=== PATIENT | male | born 1950 | race Caucasian/White ===

== ENCOUNTER 2016-10-11 07:32 | Day surgery (SDC) | payer OTHER ==
[2016-10-04 16:08] VITALS: BMI 27.2
[2016-10-11] MEDS ORDERED: PROPOFOL 20 ML ONE ×2 (07:36)
[2016-10-11 15:28] VITALS: BP 138/76; PULSE 59; TEMP 97.6
== END 2016-10-11 10:10 | disposition home or self-care (01) ==
LOC: FASU-ENDO 07:32
PROVIDERS: ATTEND Internal Medicine Gastroenterology
PROC: 0DJD8ZZ Inspection of Lower Intestinal Tract, Via Natural or Artificial Opening Endoscopic (ICD-10-PCS; principal; 2016-10-11 08:56)
DX: Z86.010 Personal history of colon polyps (principal)

== ENCOUNTER 2018-04-19 23:49 | Emergency (ER) | payer OTHER ==
[2018-04-20] MEDS ORDERED: DIPHTH,PERTUSS(ACELL),TET VAC 0.5 ML VIAL IM ONE (01:19)
--- NOTE | 2018-04-20 01:20 | PDOC ---
History of Present Illness - History of Present Illness Initial Comments: The patient is a 67 year old male, with a significant PMH of HLD and hypercholesterolemia, who presents to the emergency department today s/p unwitnessed fall prior to arrival. Patient notes he had 2 glasses of strong liquor and 2 glasses of wine earlier this evening. He does also admit to marijuana use today. He recalls relaxing and watching TV, but not the incident. As per patients , she heard a loud bang and came down to find that her had fell onto the floor. Patient does not recall the how the incident took place or anything during the fall, but he does confirm LOC and head contusion. Patients notes that he has been slightly out of sorts since the incident. Patient had one episode of NBNB vomit while in the ED. He denies any neck pain, back pain, or other injuries at this time. The patient denies chest pain and shortness of breath. Denies fever, chills, diarrhea and constipation. Denies dysuria, frequency, urgency and hematuria. Allergies: NKA Past surgical history: Left toe fracture repair Social history: Daily EtOh use, marijuana use PCP: Dr. Ancelmo Barajas 04/20/18 02:26 <Pily Gilbert - Last Filed: 04/20/18 02:37> <Magy Noel - Last Filed: 04/21/18 02:01> - General Chief Complaint: Injury Stated Complaint: FALL,HEAD INJURY Time Seen by Provider: 04/20/18 01:19 Past History <Pily Gilbert - Last Filed: 04/20/18 02:37> - Past Medical History Anemia: No Asthma: No Cancer: No Cardiac Disorders: No CVA: No COPD: No CHF: No Dementia: No Diabetes: No GI Disorders: No Disorders: No HTN: No Hypercholesterolemia: Yes Liver Disease: No Seizures: No Thyroid Disease: No - Surgical History Abdominal Surgery: No Appendectomy: No Cardiac Surgery: No Cholecystectomy: No Lung Surgery: No Neurologic Surgery: No Orthopedic Surgery: No (lt 2nd toe fx repair 25 yrs ago) - Suicide/Smoking/Psychosocial Hx Smoking History: Never smoked Have you smoked in the past 12 months: No Hx Alcohol Use: Yes (daily) Drug/Substance Use Hx: No Substance Use Type: Alcohol Hx Substance Use Treatment: No <Magy Noel - Last Filed: 04/21/18 02:01> - Past Medical History Allergies/Adverse Reactions: Allergies Allergy/AdvReac Type Severity Reaction Status Date / Time No Known Allergies Allergy Verified 10/11/16 07:50 Home Medications: Ambulatory Orders Cholecalciferol (Vitamin D3) [Vitamin D3] 2,000 unit PO DAILY capsule 11/16/14 Review of Systems - Review of Systems Comments:: GENERAL/CONSTITUTIONAL: No fever or chills. No weakness. HEAD, EYES, EARS, NOSE AND THROAT: +Head contusion. +Right occipital laceration. No change in vision. No ear pain or discharge. No sore throat. CARDIOVASCULAR: No chest pain or shortness of breath. RESPIRATORY: No cough, wheezing, or hemoptysis. GASTROINTESTINAL: +1 episode NBNB vomit in ED. No diarrhea or constipation. GENITOURINARY: No dysuria, frequency, or change in urination. MUSCULOSKELETAL: No joint or muscle swelling or pain. No neck or back pain. SKIN: No rash NEUROLOGIC: +LOC +Head contusion. +Right occipital laceration. No vertigo or change in strength/sensation. ENDOCRINE: No increased thirst. No abnormal weight change. HEMATOLOGIC/LYMPHATIC: No anemia, easy bleeding, or history of blood clots. ALLERGIC/IMMUNOLOGIC: No hives or skin allergy. 04/20/18 02:27 <Pily Gilbert - Last Filed: 04/20/18 02:37> *Physical Exam - Vital Signs Last Vital Signs Temp Pulse Resp BP Pulse Ox 98.5 F 77 19 109/67 100 04/19/18 23:55 04/19/18 23:55 04/19/18 23:55 04/19/18 23:55 04/19/18 23:55 - Physical Exam Comments: GENERAL: Aaox3 and slightly disoriented but arousable, in no acute distress. Afebrile. HEAD: +Laceration to the right occiput. EYES: PERRLA, EOMI, sclera anicteric, conjunctiva clear ENT: Auricles normal inspection, hearing grossly normal, nares patent, oropharynx clear without exudates. Moist mucosa NECK: No neck pain. Normal ROM, supple, no lymphadenopathy, JVD, or masses LUNGS: Breath sounds equal, clear to auscultation bilaterally. No wheezes, and no crackles HEART: Regular rate and rhythm, normal S1 and S2, no murmurs, rubs or gallops ABDOMEN: Soft, nontender, normoactive bowel sounds. No guarding, no rebound. No masses EXTREMITIES: Normal range of motion, no edema. No clubbing or cyanosis. No cords, erythema, or tenderness NEUROLOGICAL: Cranial nerves II through XII grossly intact. Normal speech (not slurring), normal gait SKIN: Warm, Dry, normal turgor, no rashes or lesions noted. 04/20/18 02:27 <Pily Gilbert - Last Filed: 04/20/18 02:37> Moderate Sedation - Procedure Monitoring Vital Signs: Procedure Monitoring Vital Signs Temperature 98.5 F 04/19/18 23:55 Pulse Rate 77 04/19/18 23:55 Respiratory Rate 19 04/19/18 23:55 Blood Pressure 109/67 04/19/18 23:55 O2 Sat by Pulse Oximetry (%) 100 04/19/18 23:55 <Pily Gilbert - Last Filed: 04/20/18 02:37> ED Treatment Course - LABORATORY CBC & Chemistry Diagram: 04/20/18 01:40 04/20/18 01:40 - ADDITIONAL ORDERS Additional order review: Laboratory Results 04/20/18 01:40 Sodium 142 Potassium 5.1 Chloride 108 H Carbon Dioxide 26 Anion Gap 8 BUN 23 H Creatinine 1.0 Creat Clearance w eGFR > 60 Random Glucose 86 Calcium 8.5 Total Bilirubin 0.2 AST 21 ALT 26 Alkaline Phosphatase 61 Total Protein 6.7 Albumin 3.7 Alcohol, Quantitative 80.4 H 04/20/18 01:40 RBC 4.40 MCV 96.2 H MCHC 34.5 RDW 12.5 MPV 9.1 Neutrophils % 76.5 Lymphocytes % 14.7 D Monocytes % 7.9 Eosinophils % 0.6 Basophils % 0.3 - RADIOLOGY Radiograph Interpretation: EXAM: Cervical spine CT w/o contrast IMPRESSION: No fracture Reported by: Calvin Vasquez MD 04/20/2018 01:48 EXAM: Head CT w/o contrast IMPRESSION: No evidence of pathology Reported by: Calvin Vasquez MD 04/20/2018 01:49 04/20/18 02:37 - Medications Given in the ED: ED Medications Discontinued Medications Generic Name Dose Route Start Last Admin Trade Name Freq PRN Reason Stop Dose Admin Acetaminophen 1,000 mg 04/20/18 01:38 04/20/18 01:49 Ofirmev Injection - IVPB 04/20/18 01:39 1,000 mg ONCE ONE Administration Diphtheria/Tetanus/Acell Pertussis 0.5 ml 04/20/18 01:19 04/20/18 02:00 Adacel Adolescent/Adult - IM 04/20/18 01:20 0.5 ml .ONCE ONE Administration Ondansetron HCl 4 mg 04/20/18 01:38 04/20/18 01:49 Zofran Injection IVPB 04/20/18 01:39 4 mg ONCE ONE Administration Sodium Chloride 500 ml 04/20/18 01:38 04/20/18 01:48 Normal Saline - IV 04/20/18 01:39 500 ml ONCE ONE Administration <Pily Gilbert - Last Filed: 04/20/18 02:37> - LABORATORY CBC & Chemistry Diagram: 04/20/18 01:40 04/20/18 01:40 <Magy Noel - Last Filed: 04/21/18 02:01> Medical Decision Making - Medical Decision Making 04/21/18 01:59 Pt came with fall at home, after drinking alcohol and smoking marijuana. Pt states memories are fuzzy, but no long LOC. came down and so did pt's son. Both brought him to the ER. Pt is A+Ox3 and he has no distress. Neurologically intact. Head CT normal. Labs normal ( we checked becuae pt vomited in the ER) he feels better. EKG NSR, and pt was hydrated in the ER <Magy Noel - Last Filed: 04/21/18 02:01> *DC/Admit/Observation/Transfer - Attestations Scribe Attestion: Documentation prepared by KAL Sauer, acting as center medical specialist for Magy Noel MD. 04/20/18 02:27 <Pily Gilbert - Last Filed: 04/20/18 02:37> - Discharge Dispostion Decision to Admit order: No <Magy Noel - Last Filed: 04/21/18 02:01> Diagnosis at time of Disposition: Scalp hematoma, Abrasion of occiput, Laceration of scalp - Discharge Dispostion Disposition: HOME Condition at time of disposition: Improved - Referrals Referrals: Ancelmo Barajas MD [Primary Care Provider] - - Patient Instructions Printed Discharge Instructions: How to Prevent Falls, DI for Closed Head Injury - Post Discharge Activity
[2018-04-20] MEDS ORDERED: DIPHTH,PERTUSS(ACELL),TET 0.5 ML DISP.SYRIN IM ONE (01:22)
[2018-04-20] MEDS ORDERED: ONDANSETRON 4 MG/2 ML VIAL IVPB ONE (01:38)
[2018-04-20] MEDS ORDERED: ACETAMINOPHEN 1000 MG/100 ML VIAL (NON FORMULARY) IVPB ONE (01:38)
[2018-04-20] MEDS ORDERED: SODIUM CHLORIDE 0.9% 500 ML INFUS.BAG IV ONE (01:38)
[2018-04-20] MEDS ORDERED: ACETAMINOPHEN INJECTION 100 ML IVPB ONE (01:38)
[2018-04-20] MEDS ORDERED: ONDANSETRON 4 MG/2 ML VIAL ONE (01:38)
[2018-04-20 01:55] LABS: BASO % 0.3 % (0-2.0); EOS % 0.6 % (0-4.5); HEMATOCRIT 42.3 % (35.4-49); HEMOGLOBIN 14.6 GM/dL (11.7-16.9); LYMPH % 14.7 % (8-40); MCH 33.2 pg (25.7-33.7); MCHC 34.5 g/dl (32.0-35.9); MEAN CELL VOLUME 96.2 fl (80-96); MEAN PLT VOLUME 9.1 fl (7.5-11.1); MONO % 7.9 % (3.8-10.2); NEUT % 76.5 % (42.8-82.8); PLATELET COUNT 257 K/MM3 (134-434); RDW 12.5 % (11.9-15.9); WHITE BLOOD COUNT 9.2 K/mm3 (4.0-10.0)
[2018-04-20 01:57] VITALS: TEMP 98.5; BMI 25.4
[2018-04-20 02:25] LABS: ALBUMIN 3.7 g/dl (3.4-5.0); ALK PHOS 61 U/L (45-117); ANION GAP 8 MMOL/L (8-16); BILIRUBIN,TOTAL 0.2 mg/dL (0.2-1); BLOOD UREA NITROGEN 23 mg/dL (7-18); CALCIUM 8.5 mg/dL (8.5-10.1); CHLORIDE 108 mmol/L (98-107); CO2 26 mmol/L (21-32); GLUCOSE,RANDOM 86 mg/dL (74-106); POTASSIUM 5.1 mmol/L (3.5-5.1); SGOT/AST 21 U/L (15-37); SGPT/ALT 26 U/L (13-61); SODIUM 142 mmol/L (136-145); TOT PROT 6.7 g/dl (6.4-8.2)
[2018-04-20] MEDS ORDERED: LIDOCAINE 1%/EPI 1:100000 (20 ML MULTI DOSE VIAL) ONE (03:03)
[2018-04-20 03:43] VITALS: BP 123/78; PULSE 88
--- NOTE | 2018-04-20 12:57 | EKG ---
Test Reason : Blood Pressure : / mmHG Vent. Rate : 070 BPM Atrial Rate : 070 BPM P-R Int : 204 ms QRS Dur : 088 ms QT Int : 442 ms P-R-T Axes : 024 023 027 degrees QTc Int : 477 ms SINUS RHYTHM NO PREVIOUS ECGS AVAILABLE Confirmed by SUN SAWYER MD ([id number]) on 04/20/2018 12:56:54 PM Referred By: Confirmed By:SUN SAWYER MD
== END 2018-04-20 03:43 | disposition home or self-care (01) ==
LOC: JER 23:49
PROC: 3E0234Z Introduction of Serum, Toxoid and Vaccine into Muscle, Percutaneous Approach (ICD-10-PCS; principal; 2018-04-19)
PROC: 3E033NZ Introduction of Analgesics, Hypnotics, Sedatives into Peripheral Vein, Percutaneous Approach (ICD-10-PCS; 2018-04-19)
PROC: 3E033GC Introduction of Other Therapeutic Substance into Peripheral Vein, Percutaneous Approach (ICD-10-PCS; 2018-04-19)
DX: S06.9X0A Unspecified intracranial injury without loss of consciousness, initial encounter (principal); S00.83XA Contusion of other part of head, initial encounter; S01.01XA Laceration without foreign body of scalp, initial encounter; W18.39XA Other fall on same level, initial encounter; Y93.89 Activity, other specified; Y92.018 Other place in single-family (private) house as the place of occurrence of the external cause; F10.10 Alcohol abuse, uncomplicated; F12.10 Cannabis abuse, uncomplicated
CPT/HCPCS: 36415; 70450-TC; 72125-TC; 80053; 80307; 85025; 93005; 93010; 99282-25; J0131

== ENCOUNTER 2021-09-11 00:26 | Emergency (ER) | payer OTHER ==
[2021-09-11 00:43] VITALS: BMI 25.6
[2021-09-11 00:54] VITALS: BP 95/54; PULSE 58; TEMP 98.2
== END 2021-09-11 00:59 | disposition home or self-care (01) ==
LOC: FER 00:26
DX: F12.90 Cannabis use, unspecified, uncomplicated (principal)
CPT/HCPCS: 99281-25

== ENCOUNTER 2022-09-20 05:29 | Inpatient (IN) | payer OTHER ==
[2022-09-20] MEDS ORDERED: oxyCODONE HCL 5 MG TABLET PO PRN ×2 (10:45)
[2022-09-20] MEDS ORDERED: ONDANSETRON 4 MG/2 ML VIAL IVPUSH PRN (10:45)
[2022-09-20] MEDS ORDERED: PROMETHAZINE HCL 25 MG/1 ML VIAL IVPB PRN ×2 (10:45→22:52)
[2022-09-20] MEDS ORDERED: ACETAMINOPHEN 1000 MG/100 ML BAG IVPB PRN (10:46)
[2022-09-20] MEDS ORDERED: ONDANSETRON 4 MG/2 ML VIAL ONE ×2 (10:51→15:30)
[2022-09-20] MEDS ORDERED: ROCURONIUM BROMIDE 50 MG/5 ML SYRINGE ONE (10:51)
[2022-09-20] MEDS ORDERED: LIDOCAINE HCL/PF 2% SDV 5ML VIAL ONE (10:51)
[2022-09-20] MEDS ORDERED: KETOROLAC TROMETHAMINE 30 MG/1 ML VIAL ONE (10:51)
[2022-09-20] MEDS ORDERED: PROPOFOL 20 ML ONE (10:51)
[2022-09-20] MEDS ORDERED: MIDAZOLAM HCL 2 MG/2 ML SINGLE DOSE VIAL ONE (10:51)
[2022-09-20] MEDS ORDERED: DEXAMETHASONE SOD PHOSPHATE 4 MG/1 ML VIAL ONE (10:51)
[2022-09-20] MEDS ORDERED: SUGAMMADEX SODIUM 200 MG/2 ML VIAL ONE (10:52)
[2022-09-20] MEDS ORDERED: ceFAZolin SODIUM 1 GM VIAL ONE (11:22)
[2022-09-20] MEDS ORDERED: ceFAZolin SODIUM 1 GM VIAL IVPB ONE (11:41)
[2022-09-20] MEDS ORDERED: BUPIVACAINE HCL/PF 2.5 MG/ML - 30 ML VIAL IJ ONE (11:45)
[2022-09-20] MEDS ORDERED: SEVOFLURANE 250 ML BTL ONE (12:15)
[2022-09-20] MEDS ORDERED: NEOSTIGMINE METHYLSULFATE 0.5 MG/1 ML - 10 ML MDV ONE (12:55)
[2022-09-20] MEDS ORDERED: GLYCOPYRROLATE 0.2 MG/1 ML VIAL ONE (12:56)
[2022-09-20] MEDS ORDERED: ACETAMINOPHEN INJECTION 100 ML IVPB ONE (13:26)
[2022-09-20] MEDS ORDERED: ACETAMINOPHEN 1000 MG/100 ML BAG IVPB ONE (13:28)
[2022-09-20] MEDS ORDERED: METOCLOPRAMIDE HCL INJECTION 10 MG/2 ML VIAL ONE (19:42)
[2022-09-20] MEDS ORDERED: METOCLOPRAMIDE HCL INJECTION 10 MG/2 ML VIAL IVPUSH ONE (19:52)
[2022-09-20] MEDS ORDERED: hydrALAZINE HCL 20 MG/ML VIAL ONE (22:10)
[2022-09-20] MEDS ORDERED: PROMETHAZINE HCL 25 MG/1 ML VIAL ONE (22:31)
[2022-09-20] MEDS ORDERED: hydrALAZINE HCL 20 MG/ML VIAL IVPUSH ONE (22:52)
[2022-09-21] MEDS ORDERED: LORazepam 2 MG TABLET PO PRN (00:02)
[2022-09-21 00:03] VITALS: RESP 18
[2022-09-21] MEDS ORDERED: LACTATED RINGERS SOLUTION 1,000 ML/1,000 ML INFUS.BAG IV SCH (00:15)
[2022-09-21 02:06] VITALS: BMI 27.3
[2022-09-21] MEDS: LACTATED RINGERS SOLUTION 1,000 ML IV SCH ×2 (02:15→10:52)
[2022-09-21 02:58] LABS: HEMATOCRIT 42.4 % (35.4-49); HEMOGLOBIN 14.4 GM/dL (11.7-16.9); MCHC 33.9 g/dl (32.0-35.9); MEAN CELL VOLUME 94.4 fl (80-96); PLATELET COUNT 187 10^3/uL (134-434); RBC 4.49 M/mm3 (4.00-5.60); RDW 13.2 % (11.9-15.9); WHITE BLOOD COUNT 9.4 K/mm3 (4.0-10.0)
[2022-09-21 03:30] LABS: POTASSIUM 4.9 mmol/L (3.5-5.1)
[2022-09-21 03:32] LABS: CALCIUM 8.8 mg/dL (8.5-10.1)
[2022-09-21 03:33] LABS: ALBUMIN 3.4 g/dl (3.4-5.0); BLOOD UREA NITROGEN 15.9 mg/dL (7-18); MAGNESIUM 1.8 mg/dL (1.8-2.4)
[2022-09-21 03:36] LABS: CREATININE 0.8 mg/dL (0.55-1.3); PHOSPHOROUS 3.7 mg/dL (2.5-4.9)
[2022-09-21 03:38] LABS: BILIRUBIN,TOTAL 0.5 mg/dL (0.2-1); TOT PROT 6.3 g/dl (6.4-8.2)
[2022-09-21 06:26] VITALS: BP 131/78; PULSE 81; TEMP 98.3
[2022-09-21] MEDS ORDERED: FOLIC ACID 1 MG TABLET (FP) PO SCH (10:00)
[2022-09-21] MEDS ORDERED: THIAMINE HCL 100 MG TABLET (FP) PO SCH (10:00)
[2022-09-21] MEDS ORDERED: TAMSULOSIN HCL 0.4 MG CAP PO SCH (10:45)
[2022-09-22] MEDS ORDERED: TAMSULOSIN HCL 0.4 MG CAP PO SCH (08:30)
== END 2022-09-21 12:00 | disposition home or self-care (01) | DRG 352 ==
LOC: JASU-SURG 05:29 → J8W 09-21 00:01
PROVIDERS: ADMIT Internal Medicine; ATTEND Nurse Practitioner Family
PROC: 0YU64JZ Supplement Left Inguinal Region with Synthetic Substitute, Percutaneous Endoscopic Approach (ICD-10-PCS; principal; 2022-09-20 12:15)
DX: K40.90 Unilateral inguinal hernia, without obstruction or gangrene, not specified as recurrent (principal); R33.9 Retention of urine, unspecified; E78.5 Hyperlipidemia, unspecified; F12.90 Cannabis use, unspecified, uncomplicated; E78.00 Pure hypercholesterolemia, unspecified
CPT/HCPCS: 36415; 76775-TC; 76856-TC; 80053; 83735; 84100; 85027; 86850; 86900; 86901; 93005; 93010; 94760; C1781

== ENCOUNTER 2023-01-22 09:27 | Day surgery (SDC) | payer OTHER ==
[2023-01-18 10:55] VITALS: BMI 25.8
[2023-01-22 11:33] VITALS: RESP 18; TEMP 97.6
[2023-01-22 11:58] VITALS: BP 120/70; PULSE 68
== END 2023-01-22 11:59 | disposition home or self-care (01) ==
LOC: FASU-ENDO 09:27
PROVIDERS: ATTEND Internal Medicine Gastroenterology
PROC: 0DJD8ZZ Inspection of Lower Intestinal Tract, Via Natural or Artificial Opening Endoscopic (ICD-10-PCS; principal; 2023-01-22 11:08)
DX: Z12.11 Encounter for screening for malignant neoplasm of colon (principal); Z86.010 Personal history of colon polyps